=== PATIENT | female | born 1970 | race Caucasian/White ===

== ENCOUNTER 2018-12-01 10:19 | Emergency (ER) | payer BC ==
[2018-12-01 11:30] VITALS: BP 102/61
--- NOTE | 2018-12-01 13:13 | UC ---
Respiratory Complaint HPI - HPI Summary HPI Summary: 4 days of bilateral ear pain/pressure and sinus pressure. Has a headache. Has occasional dizziness. No cough or congestion. No fever or nausea/vomiting. - History of Current Complaint Chief Complaint: UCEar Stated Complaint: EAR PAIN Time Seen by Provider: 12/01/18 12:59 Hx Obtained From: Patient, Family/Tenter Feeder - MOM Onset/Duration: Gradual Onset, Lasting Days, Still Present Timing: Constant Severity Initially: Moderate Severity Currently: Moderate Pain Intensity: 6 Pain Scale Used: 0-10 Numeric Aggravating Factors: Nothing Alleviating Factors: Nothing Associated Signs And Symptoms: Positive: Dizziness, Sinus Discomfort. Negative : Dyspnea, Fever, Pleuritic Chest Pain, Wheezing, URI, Nasal Congestion - Allergies/Home Medications Allergies/Adverse Reactions: Allergies Allergy/AdvReac Type Severity Reaction Status Date / Time [facility] Allergy Hives Verified 12/01/18 11:32 erythromycin base Allergy Abdominal Verified 12/01/18 11:32 Pain Penicillins Allergy Abdominal Verified 12/01/18 11:32 Pain Sulfa (Sulfonamide Allergy Abdominal Verified 12/01/18 11:32 Antibiotics) Pain Tetracyclines Allergy Abdominal Verified 12/01/18 11:32 Pain Home Medications: Home Medications Phenyleph/Acetaminophn/Doxylam [Vicks Dayquil-Nyquil Sinex Cap] 2 mis PO PRN [History] PMH/Surg Hx/FS Hx/Imm Hx Previously Healthy: Yes - Surgical History Surgical History: Yes Surgery Procedure, Year, and Place: HYSTERECTOMY,D+C,4 LAPAROSCOPIES, gallbladder removed- 2012 - Family History Known Family History: Positive: Non-Contributory - Social History Alcohol Use: Rare Substance Use Type: None Smoking Status (MU): Former Smoker Review of Systems All Other Systems Reviewed And Are Negative: Yes Constitutional: Positive: Negative ENT: Positive: Ear Ache, Sinus Congestion. Negative: Sore Throat, Nasal Discharge Respiratory: Positive: Negative Cardiovascular: Positive: Negative Gastrointestinal: Positive: Negative Physical Exam Triage Information Reviewed: Yes Appearance: Well-Appearing, No Pain Distress, Well-Nourished Vital Signs: Initial Vital Signs Temp 97.7 F 12/01/18 11:28 Pulse 73 12/01/18 11:28 Resp 18 12/01/18 11:28 BP 102/61 12/01/18 11:28 Pulse Ox 99 12/01/18 11:28 Vital Signs Reviewed: Yes Eyes: Positive: Conjunctiva Clear ENT: Positive: Hearing grossly normal, Pharynx normal, TMs normal. Negative: Hoarse voice, Sinus tenderness Neck: Positive: Supple, Nontender, No Lymphadenopathy Respiratory Exam: Normal Cardiovascular Exam: Normal Abdomen Description: Positive: Soft Musculoskeletal: Positive: No Edema Neurological: Positive: Alert Psychological: Positive: Age Appropriate Behavior Skin: Negative: Rashes Respiratory Course/Dx - Course Course Of Treatment: PATIENT'S SYMPTOMS ARE LIKELY VIRALLY MEDIATED AND SHOULD RESOLVE ON THEIR OWN WITH TIME. NOTHING ON PHYSICAL EXAM TODAY TO INDICATE ANY BACTERIAL INFECTION. NO INDICATION FOR ANTIBIOTICS AT PRESENT. DISCUSSED CONSERVATIVE MEASURES THAT SHE CAN TRY AT HOME. FOLLOW-UP WITH PCP IF NOT IMPROVING EXPECTED OVER THE NEXT COUPLE OF WEEKS. - Differential Dx/Diagnosis Provider Diagnosis: Acute viral sinusitis Discharge - Sign-Out/Discharge Documenting (check all that apply): Patient Departure All imaging exams completed and their final reports reviewed: No Studies - Discharge Plan Condition: Stable Disposition: HOME Patient Education Materials: Sinusitis (ED) Referrals: Hema Milton MD [Primary Care Provider] - If Needed Additional Instructions: YOUR SYMPTOMS ARE LIKELY VIRALLY MEDIATED AND SHOULD RESOLVE ON THEIR OWN WITH TIME. NO INDICATION FOR ANTIBIOTICS AT PRESENT. REST, HYDRATE, OTC MEDS NEEDED. SEEK FOLLOW-UP IF YOU ARE NOT IMPROVING OVER THE NEXT COUPLE OF WEEKS. - Billing Disposition and Condition Condition: STABLE Disposition: Home
== END 2018-12-01 13:12 | disposition home or self-care (01) ==
LOC: UCEAST 10:19
DX: J01.80 Other acute sinusitis (principal); Z87.891 Personal history of nicotine dependence; Z88.0 Allergy status to penicillin; Z88.2 Allergy status to sulfonamides
CPT/HCPCS: 99211; G0463